=== PATIENT | female | born 1985 | race Caucasian/White ===

== ENCOUNTER 2016-04-24 13:12 | Emergency (ER) | payer MEDICAID ==
[~2016-04-24] VITALS: Ht 177.8 cm; Wt 92.3 kg
[~2016-04-24 13:12] MED LIST: IBUP-232 PO; NORC5TAB PO
[2016-04-24 13:18] VITALS: BP 119/78; PULSE 80; RESP 16; TEMP 98.2; O2SAT 99
--- NOTE | 2016-04-24 14:01 | PD ---
HPI . flu like sxs and rash to both legs Chief Complaint: flu like sxs and rash to both legs Time Seen by Provider: 14:01 Travel History International Travel<30 days: No Contact w/Intl Traveler<30days: No Traveled to known affect area: No History of Present Illness HPI 30-year-old female here with complaints of flulike symptoms and rash to both legs. Patient is complaining of a sore throat that started approximately 2 days ago. She then noticed a rash this morning on her bilateral lower extremities and this will prompted her to come to the emergency department. She did have a temperature yesterday of 102.4. She has taken ibuprofen today. She admits to throat pain, but she is able to eat. 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 The rash on her legs is slightly tender to touch and hot. She denies any possible insect bite or exposure to new hygiene products. She has been working bike week events, but does not recall getting into any new type of substance. She denies any coughing, nausea, vomiting, diarrhea or abdominal pain. PFSH Past Medical History Diminished Hearing: No Immunizations Current: Yes : 3 Para: 3 Miscarriage: 0 : 0 Tubal Ligation: Yes Social History Alcohol Use: Yes (2-3 WINE, OCCASIONALLY) Tobacco Use: No (DENIES) Substance Use: No Allergies-Medications (Allergen,Severity, Reaction): Coded Allergies: No Known Allergies (Verified , 04/24/16) Reported Meds & Prescriptions Reported Meds & Active Scripts Active Ibuprofen 800 Mg Tab 800 Mg PO TID Bactrim DS (Sulfamethoxazole-Trimethoprim) 800-160 Mg Tab 1 Tab PO BID Review of Systems General / Constitutional: Positive: Fever Eyes: No: Visual changes HENT: Positive: Sore Throat, No: Headaches Cardiovascular: No: Chest Pain or Discomfort Respiratory: No: Shortness of Breath Gastrointestinal: No: Abdominal Pain Genitourinary: No: Dysuria Musculoskeletal: No: Pain Skin: Positive Rash Neurologic: No: Weakness Psychiatric: No: Depression Endocrine: No: Polydipsia Hematologic/Lymphatic: No: Easy Bruising Physical Exam Narrative GENERAL: AAO x 3, no acute distress, Well-nourished, well-developed patient. SKIN: Warm and dry. Bilateral lower extremities with a macular rash that is erythematous and hot to touch. Blanches with pressure. HEAD: Normocephalic and atraumatic. EYES: No scleral icterus. No injection or drainage. ENT: No nasal drainage noted. Mucous membranes pink. Airway patent. Moderate posterior erythema without visible exudates. Slightly enlarged tonsils bilaterally. No uvula deviation. TMs normal bilaterally. NECK: Supple, trachea midline. No JVD. CARDIOVASCULAR: Regular rate and rhythm without murmurs, gallops, or rubs. RESPIRATORY: Breath sounds equal bilaterally. No accessory muscle use. No rhonchi or rales. GASTROINTESTINAL: Abdomen soft, non-tender, nondistended. EXTREMITIES: No cyanosis or edema. BACK: Nontender without obvious deformity. No CVA tenderness. PSYCH: AAO x 3, normal affect. Data Data Last Documented VS Vital Signs Date Time Temp Pulse Resp B/P Pulse Ox O2 Delivery O2 Flow Rate FiO2 04/24/16 14:25 18 04/24/16 13:18 98.2 80 119/78 99 Room Air Orders Influenzae A/B Antigen (04/24/16 14:14) Group A Rapid Strep Screen (04/24/16 14:14) Strep Culture (Group A) (04/24/16 14:40) MDM Medical Decision Making Medical Screen Exam Complete: Yes Emergency Medical Condition: Yes Medical Record Reviewed: Yes Differential Diagnosis Viral syndrome, acute pharyngitis, less likely systemic infection Narrative Course 30-year-old female here with complaints of flulike symptoms and rash to both legs. Patient is complaining of a sore throat that started approximately 2 days ago. She then noticed a rash this morning on her bilateral lower extremities and this will prompted her to come to the emergency department. She did have a temperature yesterday of 102.4. She has taken ibuprofen today. She admits to throat pain, but she is able to eat. 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 The rash is slightly tender to touch and hot. She denies any possible insect bite or exposure to new hygiene products. She has been working bike week events, but does not recall getting into any new type of substance. She denies any coughing , nausea, vomiting, diarrhea or abdominal pain. Patient seen and examined. Case discussed with Dr. Burks, who also examined the patient. Recommend influenza and strep test. If strep is negative we will just go ahead and treat for a cellulitis with Bactrim. Advised patient that she will need to follow with primary care provider and to return to ED if symptoms return or worsen. Both influenza and strep are negative. Discussed with patient. Bactrim Rx provided. Patient verbalized understanding of instructions, questions were answered, and thanked me for their care. I advised them if their condition worsens, please return to the nearest emergency room for further care. Patient verbalized understanding of instructions, questions were answered, and thanked me for their care. I advised them if their condition worsens, please return to the nearest emergency room for further care. Diagnosis Primary Impression: Cellulitis, leg Qualified Code: L03.119 - Cellulitis of lower extremity, unspecified laterality Additional Impression: Viral infection Patient Instructions: Cellulitis (ED), General Instructions Additional Instructions: Please return to emergency department if your symptoms return or worsen. Follow up with your primary care provider. Take medications as prescribed. Please follow-up with her primary care provider for further workup and treatment. Take antibiotics until complete. Wilson for worsening signs of infection which include increased redness, increased warmth, purulent drainage, increased swelling or streaking. Scripts Ibuprofen 800 Mg [id number] Mg PO TID #21 TAB Prov:Jacob Burks MD 04/24/16 Sulfamethoxazole-Trimethoprim (Bactrim DS)800-160 Mg Tab1 Tab PO BID #20 TAB Prov:Jacob Burks MD 04/24/16 Disposition: 01 DISCHARGE HOME Condition: Stable Rukhsana Richards Apr 24, 2016 14:01
--- NOTE | 2016-04-24 14:38 | PD ---
Data Data Last Documented VS Vital Signs Date Time Temp Pulse Resp B/P Pulse Ox O2 Delivery O2 Flow Rate FiO2 04/24/16 14:25 18 04/24/16 13:18 98.2 80 119/78 99 Room Air Orders Influenzae A/B Antigen (04/24/16 14:14) Group A Rapid Strep Screen (04/24/16 14:14) Strep Culture (Group A) (04/24/16 14:40) MDM Supervised Visit with [facility]: Yes Narrative Course I, Dr. Burks, have reviewed the advance practice practitioner's documentation and am in agreement, met with the patient face to face, made the diagnosis, and the medical decision making was done by me. *My assessment and Findings: Patient's 30-year-old female presents with upper respiratory symptoms and a very mild lacy rash to bilateral lower extremities distal to the mid tibia. Could be consistent with an early cellulitis or erysipelas. In consistent with purpura. Inconsistent with scarlet fever. There is no swelling of the compartments. Likely this is an early cellulitis. No indication for blood work at this time. Scripts Ibuprofen 800 Mg [id number] Mg PO TID #21 TAB Prov:Jacob Burks MD 04/24/16 Sulfamethoxazole-Trimethoprim (Bactrim DS)800-160 Mg Tab1 Tab PO BID #20 TAB Prov:Jacob Burks MD 04/24/16 Jaocb Burks MD Apr 24, 2016 14:38
[2016-04-24] MEDS ORDERED: IBUP800T23 PO (15:55)
[2016-04-24] MEDS ORDERED: BACT800T5 PO (15:55)
== END 2016-04-24 16:05 | disposition home or self-care (01) ==
LOC: PHEFT 13:12
DX: L03.119 Cellulitis of unspecified part of limb (principal); B34.9 Viral infection, unspecified; J02.9 Acute pharyngitis, unspecified; K14.1 Geographic tongue
CPT/HCPCS: 87081; 87804; 87880; 99283

== ENCOUNTER 2016-08-16 10:19 | Emergency (ER) | payer MEDICAID ==
[~2016-08-16] VITALS: Ht 177.8 cm; Wt 88.3 kg
[~2016-08-16 10:19] MED LIST changes: +BACT800T5 PO; -IBUP-232 PO; +IBUP800T23 PO; -NORC5TAB PO
[2016-08-16 10:22] VITALS: BP 140/92; PULSE 93; RESP 16; TEMP 98.1; O2SAT 98
--- NOTE | 2016-08-16 10:53 | PD ---
HPI Chief Complaint: Injury Time Seen by Provider: 10:45 Travel History International Travel<30 days: No Contact w/Intl Traveler<30days: No Traveled to known affect area: No History of Present Illness HPI 30-year-old female complains of right hand pain. Patient states that her hand got caught on a closing door this morning. Patient states that she has severe sharp pain localized around the first metacarpal and at the base of the right thumb. Patient denies any other injury. On a scale of 1-10 the pain is a 9. Patient denies any chance of being . PFSH Past Medical History Medical History: Denies Significant Hx Diminished Hearing: No Immunizations Current: Yes Tetanus Vaccination: < 5 Years ?: Not : 3 Para: 3 Miscarriage: 0 : 0 Tubal Ligation: Yes Social History Alcohol Use: No Tobacco Use: No Substance Use: No Allergies-Medications (Allergen,Severity, Reaction): Coded Allergies: No Known Allergies (Verified , 08/16/16) Reported Meds & Prescriptions Reported Meds & Active Scripts Active No Active Prescriptions or Reported Medications Review of Systems General / Constitutional: No: Fever Eyes: No: Visual changes HENT: No: Headaches Cardiovascular: No: Chest Pain or Discomfort Respiratory: No: Shortness of Breath Gastrointestinal: No: Abdominal Pain Genitourinary: No: Dysuria Musculoskeletal: Positive: Pain Skin: No Rash Neurologic: No: Weakness Psychiatric: No: Depression Endocrine: No: Polydipsia Hematologic/Lymphatic: No: Easy Bruising Physical Exam Narrative GENERAL: Well-nourished, well-developed patient. SKIN: Focused skin assessment warm/dry. HEAD: Normocephalic. EYES: No scleral icterus. No injection or drainage. NECK: Supple, trachea midline. No JVD or lymphadenopathy. CARDIOVASCULAR: Regular rate and rhythm without murmurs, gallops, or rubs. RESPIRATORY: Breath sounds equal bilaterally. No accessory muscle use. GASTROINTESTINAL: Abdomen soft, non-tender, nondistended. MUSCULOSKELETAL: No cyanosis, or edema. BACK: Nontender without obvious deformity. No CVA tenderness. Patient has ecchymosis swelling tenderness involving the first metacarpal of the right hand. Sensorimotor function distally intact. Patient has moderate tenderness on palpation of the base of the right thumb. Data Data Last Documented VS Vital Signs Date Time Temp Pulse Resp B/P Pulse Ox O2 Delivery O2 Flow Rate FiO2 7/6/17 10:22 98.1 93 16 140/92 98 Orders Hand, Complete ([id number]) (08/16/16 10:47) MDM Medical Decision Making Medical Screen Exam Complete: Yes Emergency Medical Condition: Yes Interpretation(s) Last Impressions Hand X-Ray 08/16/16 1047 Signed Impressions: Service Date/Time: , August 16, 2016 11:00 - CONCLUSION: Mild soft tissue swelling. No acute fracture or joint dislocation. Quique Randolph MD Differential Diagnosis Differential diagnosis including contusion, fracture, dislocation. Narrative Course 30-year-old female with injury to right hand. Diagnosis Primary Impression: Contusion of right hand Qualified Code: S60.221A - Contusion of right hand, initial encounter Patient Instructions: General Instructions Additional Instructions: Ice pack as needed. Keep right hand elevated. Take medication as directed for pain. Follow-up with an orthopedist if persistent problem. Med/Other Pt SpecificInfo: Prescription(s) given Scripts Hydrocodone-Acetaminophen ([place])5-325 mg Tab1 Tab PO Q6H PRN (PAIN) #20 TAB Prov:Kenneth Daley MD 08/16/16 Ibuprofen 600 Mg [id number] Mg PO TID #30 TAB Prov:Kenneth Daley MD 08/16/16 Disposition: 01 DISCHARGE HOME Condition: Stable Kenneth Daley MD Aug 16, 2016 10:53
--- NOTE | 2016-08-16 11:15 | RADRPT ---
EXAM DATE/TIME: 08/16/2016 11:00 [facility] COMPARISON: No previous studies available for comparison. INDICATIONS : Right hand pain, palm of hand at base of 1st digit, slammed hand in sliding glass door. MEDICAL HISTORY : None. SURGICAL HISTORY : None. ENCOUNTER: Initial ACUITY: 1 day PAIN SCORE: 8/10 LOCATION: Right hand FINDINGS: Three view examination of the right hand demonstrates no dislocation, or fracture. There is mild soft tissue swelling at the base of the first finger. The carpal bones appear intact. The interphalange al and metacarpophalangeal joints are intact. Bony mineralization is normal. No definite radiopaque foreign bodies. CONCLUSION: Mild soft tissue swelling. No acute fracture or joint dislocation. Quique Randolph MD on August 16, 2016 at 11:12 Board Certified Radiologist. This report was verified electronically.
[2016-08-16] MEDS ORDERED: IBUP-232 PO (11:28)
[2016-08-16] MEDS ORDERED: NORC5TAB PO (11:28)
[2016-08-16] MEDS ORDERED: ACETAMINOPHEN/HYDROcodone 325 MG/5 MG TAB PO ONE (11:30)
[2016-08-16] MEDS ORDERED: IBUPROFEN 600 MG TAB PO ONE (11:30)
== END 2016-08-16 12:27 | disposition home or self-care (01) ==
LOC: PHED 10:19
DX: S60.221A Contusion of right hand, initial encounter (principal); W23.0XXA Caught, crushed, jammed, or pinched between moving objects, initial encounter
CPT/HCPCS: 73130; 99283